=== PATIENT | male | born 1995 | race Caucasian/White ===

== ENCOUNTER → 2016-12-23 | Outpatient (CLI) | payer BC, OTHER ==
--- NOTE | 2016-12-24 13:20 | DI ---
EXAM: MRI KNEE LEFT W/O CONTRAST LOCATION OF DICTATION: [facility] – [place]. COMPARISON: None available. HISTORY: ITS.REASON: S89.92XA INJURY TECHNIQUE: Coronal T1, coronal T2 fat saturation, sagittal T1, proton density, T2 fat saturation, and axial T2 fat saturation images were obtained through the knee. FINDINGS: MCL: Unremarkable. The MCL is intact. The meniscal capsular attachments are intact. LCL: The iliotibial band, fibular collateral ligament, and biceps femoris conjoined tendon are intact. The popliteus tendon is intact. ACL: There is mild increased signal within the ACL but is predominantly intact. PCL: Unremarkable. The PCL is intact. Extensor mechanism: The patellar tendon and the quadriceps tendons are intact. Hoffa's fat pad appears unremarkable. Prepatellar subcutaneous edema is noted. There is a fluid collection just anterior to the medial retinaculum measuring 1.6 cm AP x 5 cm transverse x 10 cm craniocaudad with some internal septations. This could represent a prepatellar bursitis. Patella: The patellar cartilage appears to be intact. The medial and lateral retinaculum are intact. A significant joint effusion is not identified. Lateral meniscus: Unremarkable. No evidence for a meniscal tear. Medial meniscus: Unremarkable. No evidence for a meniscal tear. Bones: No definite marrow edematous changes are appreciated. The medial and lateral compartment hyaline cartilage appears to be intact. Popliteal fossa: There may be a tiny Uribe's cyst present. Additional comments: None. IMPRESSION: 1. Prepatellar bursitis. 2. Tiny Uribe's cyst. 3. Otherwise unremarkable. .
== END ==
LOC: IMA 17:10
PROVIDERS: ATTEND Family Medicine Sports Medicine
DX: M70.42 Prepatellar bursitis, left knee (principal); Z91.81 History of falling